=== PATIENT | male | born 1965 | race Caucasian/White ===

== ENCOUNTER 2016-08-24 16:44 | Emergency (ER) | payer OTHER ==
--- NOTE | ~2016-08-24 | CR170 ---
[facility] A Service of [facility] & [facility] RADIOLOGY TEXT RESULTS PATIENT: DELIA KNOX LOCATION: CFTX : 61 UNIT #: [id number] AGE: [address]: Thais Bourne APRN SEX: M ORDER DR: [id number] [facility] [address] [place], [place] [address] [id number] E MR#: [id number] Acc #: [id number] NAME: DELIA KNOX : 1965 SEX: M STUDY DATE/TIME: 08/24/2016 18:06 UNIT: [facility] ROOM: STUDY DESCRIPTION: CR Knee 2 Views Rt Attending Physician: Thais Bourne A.P.R.N. Ordering Physician: Ed Damien Nicholas M.D. Primary Care Physician: No Primary Care Physician MEDICAL IMAGING REPORT This report is preliminary unless electronic signature is present EXAM Right knee series dated 08/24/2016. COMPARISON Right knee series dated 05/04/2016. HISTORY Bilateral knee pain which is persistent and worsening in the last 3 weeks. FINDINGS 2 views of the right knee were obtained. No acute displaced fracture, dislocation. There is probably mild joint effusion. There is a 6.5 mm calcification/loose body in the anterior aspect of the tibiofemoral articulating surface in the lateral view. It is stable when compared to the previous study. It is not well seen on the frontal view. Dictated by... Jeanne Clay M.D. THIS IS AN ELECTRONICALLY VERIFIED REPORT Jeanne Clay M.D. at 08/26/2016 5:09 PM CPR/rnr TD: 08/25/2016 01:59 JOB #: [id number] MEDICAL IMAGING REPORT Page 1 of 1 COPY
--- NOTE | ~2016-08-24 | CR169 ---
[facility] A Service of [facility] & [facility] RADIOLOGY TEXT RESULTS PATIENT: DELIA KNOX LOCATION: CFTX : 61 UNIT #: [id number] AGE: [address]: Thais Bourne APRN SEX: M ORDER DR: [id number] [facility] [address] [place], [place] [address] [id number] E MR#: [id number] Acc #: [id number] NAME: DELIA KONX : 1965 SEX: M STUDY DATE/TIME: 08/24/2016 18:05 UNIT: [facility] ROOM: STUDY DESCRIPTION: CR Knee 2 Views Lt Attending Physician: Thais Bourne A.P.R.N. Ordering Physician: [place] Nicholas M.D. Primary Care Physician: No Primary Care Physician MEDICAL IMAGING REPORT This report is preliminary unless electronic signature is present EXAM Left knee series dated 08/24/2016 COMPARISON Left knee series dated 05/04/2016. HISTORY Persistent left knee pain for 3 weeks. FINDINGS 2 views of the left knee were obtained. There is bony irregularity with depression of the lateral tibial plateau. It was also noted in the previous study from 4 months ago. It could be related to old trauma given some nearby opacities which could represent callous formation or calcification in this region. Minimal punctate opacities also noted in the medial tibiofemoral compartment space which could represent mild chondrocalcinosis. Mild joint effusion is seen. IMPRESSION 1. There appears to be depression of the lateral tibial plateau likely related to an old trauma given the relative stability in the last 4 months with likely some adjacent callous formation and suspicious mild displaced bone fragment. Stable. 2. Punctate opacities in the joint space of the medial tibiofemoral compartment space could be related to mild chondrocalcinosis. Stable. 3. New mild joint effusion. Dictated by... Jeanne Clay M.D. THIS IS AN ELECTRONICALLY VERIFIED REPORT Jeanne Clay M.D. at 08/26/2016 5:09 PM CPR/rnr [facility] A Service of [facility] & [facility] RADIOLOGY TEXT RESULTS PATIENT: DELIA KNOX LOCATION: [facility] : 61 UNIT #: [id number] AGE: [address]: Thais Bourne APRN SEX: M ORDER DR: TD: 08/25/2016 01:54 JOB #: [id number] MEDICAL IMAGING REPORT Page 1 of 1 COPY
[~2016-08-24 16:44] MED LIST: HYDROCORTISONE28 GM TOP; VISTARIL PO
== END 2016-08-24 19:24 | disposition home or self-care (01) ==
LOC: CFTX 16:44 → CED 16:44 → CFTX 18:11
DX: M25.462 Effusion, left knee (principal); M25.461 Effusion, right knee; F17.210 Nicotine dependence, cigarettes, uncomplicated
CPT/HCPCS: 73560; 99283